=== PATIENT | male | born 1950 | race Caucasian/White ===

== ENCOUNTER 2016-11-09 19:53 | Observation (INO) | payer OTHER ==
[2016-11-09] MEDS ORDERED: ATORVASTATIN CALCIUM 40 MG TAB PO SCH (21:00)
[2016-11-09] MEDS ORDERED: ASPIRIN 81 MG CHEWABLE TAB PO SCH (21:00)
[2016-11-09] MEDS ORDERED: FINASTERIDE 5 MG TAB PO SCH (21:00)
[2016-11-09] MEDS ORDERED: LISINOPRIL 5 MG TAB PO SCH (21:00)
--- NOTE | 2016-11-09 23:04 | PDGENHP ---
History and Physical - Chief Complaint Weakness - History of Present Illness 65 yo M w/ HTN and HLD presents after episode of L arm weakness. He was preparing a meal around 4 PM on day of admission when he first noticed weakness in his neck. He then noticed weakness in his left arm as well. Patient and called 911, who instructed them to test extremity strength. On this assessment again noted L arm weakness. They denied dysarthria or aphasia. EMS arrived at 4:15 and took them to [facility] ED. By 4:45, symptoms had completely resolved and patient returned to normal baseline. In [facility] ED, patient was noted to be in new atrial fibrillation. He also had an unremarkable CT brain and CTA head and neck. He as then transferred to [facility] for further care. Patient has noticed that his heart rate has been irregular for the last few weeks. He reports this is a new issue. He denies chest pain, shortness of breath , palpitations, dizziness, and lightheadedness today and at any point over the last few weeks. History Information - Allergies/Home Medication List Allergies/Adverse Reactions: emollient combination no.58 [From [facility]] Allergy (Intermediate, Verified 11/07 10:21) Hives Sulfa (Sulfonamide Antibiotics) Allergy (Intermediate, Verified 07/01/14 10:21) Rash ibuprofen Allergy (Mild, Verified 11/09/16 21:31) Other-Enter Comments Home Medications: Aspirin [Aspirin 81mg (*)] 81 mg PO HS 11/09/16 [Last Taken 11/08/16] Atorvastatin Calcium [Lipitor 40 mg (*)] 40 mg PO HS 11/09/16 [Last Taken ] Finasteride [Proscar 5 MG (*)] 5 mg PO HS 11/09/16 [Last Taken 11/08/16] Lisinopril [Zestril 5 mg (*)] 5 mg PO HS 11/09/16 [Last Taken 11/08/16] I have personally reviewed and updated: family history, medical history - Past Medical History hypertension, hyperlipidemia - Surgical History Additional surgical history: Knee arthroplasty - Family History Positive for: stroke (Mother had hx of CVA) - Social History Smoking Status: Never smoked Alcohol Use: Occasionally Drug Use: None Review of Systems ROS: 10pt was reviewed & negative except for what was stated in HPI & below Physical Exam Temp Pulse Resp BP Pulse Ox 36.8 C 62 18 141/96 H 97 11/09/16 21:32 11/09/16 21:32 11/09/16 21:32 11/09/16 21:32 11/09/16 21:32 Constitutional: no apparent distress, appears nourished Eyes: PERRL, EOMI Ears, Nose, Mouth, Throat: moist mucous membranes, no oral mucosal ulcers Cardiovascular: no murmur, rub, or gallop, irregularly irregular Respiratory: no respiratory distress, clear to auscultation Gastrointestinal: normoactive bowel sounds, soft, non-tender abdomen Skin: warm, no rashes or abrasions Musculoskeletal: full muscle strength, no muscle tenderness Neurologic: AAOx3, sensation intact bilaterally, CN II-XII Intact, other ( Cerebellar function intact, NIHSS 0), No weakness, No numbness, No pronator drift, No facial droop Psychiatric: interacting appropriately, not anxious Lab Data & Imaging Review Imaging Review: Reviewed imaging results from [facility]. CT Head w/o contrast: - No evidence of acute intracranial process CTA Head and Neck: - Mild atherosclerosis of the carotid bulb bilaterally, R>L, without substantial stenosis seen. - No discrete abnormality of intracranial vessels - Left-sided type anomaly of posterior circulation noted Assessment & Plan Assessment: 65 yo M w/ HTN and HLD admitted after TIA. Plan: 1. TIA - With symptoms of L sided neck and arm weakness, resolved within 45 minutes of onset. NIHSS 0 on admission. Possible embolic etiology noting newly diagnosed atrial fibrillation. Patient has no prior hx of CVA or stroke. He has well controlled HTN and HLD and does not smoke cigarettes. He does have a positive family hx for stroke in his mother. CT non-contrast and CTA head/neck performed at [facility] without acute abnormalities. ABCD2 score of 5, denoting moderate risk (5.9% 7 day, 9.8% 90 day) of stroke. - Echocardiogram ordered - MRI w/wo for further evaluation - Monitor on telemetry, q4h neuro checks - Will check lipid panel, A1c - Neurology consult placed - Continue home ASA, statin. May benefit from switch to plavix but will defer to neurology and cardiology pending anticoagulation decision 2. Atrial fibrillation - New diagnosis; [id number] of 3 noting above TIA. Rate controlled without medication. - Echocardiogram ordered - Monitor on telemetry - Indicated for anticoagulation, will consult cardiology to discuss best options with patient pending completion of TIA work-up 3. HTN - Continue home lisinopril 4. HLD - Continue home atorvastatin Diet - Regular, no issues on bedside swallow screen Code - Full Ppx - SCDs Dispo - Admit to observation, anticipate <2 MN
--- NOTE | 2016-11-10 00:02 | CPEKG ---
Heart Rate: 63 RR Interval: 952 QRSD Interval: 88 QT Interval: 396 QTC Interval: 406 QRS Springer: 1 T Wave Springer: 26 EKG Severity - ABNORMAL ECG - EKG Impression: ATRIAL FIBRILLATION, V-RATE 51-78 EKG Impression: VENTRICULAR PREMATURE COMPLEX Electronically Signed By: Tarik Alvarenga 10-Nov-2016 05:47:12
[2016-11-10 05:04] LABS: % IMMATURE GRANULYOCYTES 0.2 % (0.0-1.1); ABSOLUTE IMMATURE GRANULOCYTES 0.01 10^3/uL (0.00-0.10); ADD DIFF? NO; ADD MORPH? NO; ADD SCAN? NO; ATYPICAL LYMPHOCYTE FLAG 10 (0-99); FRAGMENT RBC FLAG 0 (0-99); HEMATOCRIT 42.5 % (40.0-51.0); HEMOGLOBIN 14.2 g/dL (13.7-17.5); LEFT SHIFT FLG 0 (0-99); LIPEMIA HEMOLYSIS FLAG 80 (0-99); MEAN CELL HEMOGLOBIN 29.6 pg (27.9-34.1); MEAN CELL HEMOGLOBIN CONCENTR. 33.4 g/dL (32.4-36.7); MEAN CELL VOLUME 88.7 fL (81.5-99.8); MEAN PLATELET VOLUME 10.3 fL (8.7-11.7); PLATELET CLUMPS FLAG 0 (0-99); PLATELET COUNT 174 10^3/uL (150-400); RED BLOOD CELL COUNT 4.79 10^6/uL (4.40-6.38); RED CELL DISTRIBUTION WIDTH 13.4 % (11.5-15.2)
[2016-11-10 05:22] LABS: ALANINE AMINOTRANSFERASE 43 IU/L (21-72); ALBUMIN 3.2 g/dL (3.5-5.0); ALKALINE PHOSPHATASE 61 IU/L (38-126); ANION GAP 8 mEq/L (8-16); ASPARTATE AMINOTRANSFERASE 25 IU/L (17-59); BILIRUBIN,TOTAL 0.6 mg/dL (0.1-1.4); CALCIUM 9.1 mg/dL (8.5-10.4); CARBON DIOXIDE 26 mEq/l (22-31); CHLORIDE 106 mEq/L (97-110); CHOLESTEROL 126 mg/dL (140-220); CHOLESTEROL/HDL RATIO 2.57 RATIO (1.00-4.97); CREATININE 1.4 mg/dL (0.7-1.3); GLOMERULAR FILTRATION RATE 51; GLUCOSE 93 mg/dL (70-100); HIGH DENSITY LIPOPROTEIN 49 mg/dL (40-65); LDL/HDL RATIO 1.22 RATIO (1.00-3.64); LOW DENSITY LIPOPROTEIN 60 mg/dL (80-100); NON-HIGH DENSITY LIPOPROTEIN 77 mg/dL (90-129); SODIUM 140 mEq/L (134-144); TOTAL PROTEIN 5.7 g/dL (6.3-8.2); TRIGLYCERIDE 89 mg/dL (40-150); VERY LOW DENSITY LIPOPROTEINS 17 mg/dL (8-25)
[2016-11-10 09:43] LABS: HEMOGLOBIN A1C 5.8 % (4.0-6.0)
[2016-11-10] MEDS ORDERED: NS 1,000 ML IV SCH (10:15)
[2016-11-10] MEDS ORDERED: NS 1,000 ML IV ONE (11:59)
[2016-11-10] MEDS ORDERED: fentaNYL 100 MCG/2 ML INJ IVP ONE (11:59)
[2016-11-10] MEDS ORDERED: MIDAZOLAM 2 MG/2 ML VIAL IVP ONE (11:59)
[2016-11-10] MEDS ORDERED: BENZOCAINE UNIT DOSE SPRAY HURRICAINE MM ONE (11:59)
--- NOTE | 2016-11-10 13:10 | ECHO ---
[id number] + + [address] : : [place] [address] : : [phone] + + Adult Echocardiographic Report + ------+ :Name: KIMI JERONIMO Stephenie Date: 11/10/2016 09:12 AM : : Hospital Admission Number: [id number] Locatio n: 213: :: 1950 Gender: Male Height: 75 in : :Age: 65 yrs Race: WH Weight: 236 lb : :Reason For Study: Eval LV Fx : : BSA: 2.4 meters 2 : :History: New onset of Atrial Fibrillation : + ------+ MMode/2D Measurements \T\ Calculations IVSd: 1.1 cm LVIDd: 4.1 cm FS: 28.4 % Ao root diam: 3.4 cm LVPWd: 1.1 cm LVIDs: 2.9 cm EDV(Teich): 73.0 ml ACS: 1.9 cm ESV(Teich): 32.6 ml EF(Teich): 55.4 % Normal Measurement Values: + + :LVIDd (3.5-5.7cm) IVSd (0.6-1.1cm) LVPWd (0.6-1.1cm) Aortic Root (2.0-3.7cm)Left Atrium (1.5-4.0cm): :LV Vol(d) (76-115ml) LV Vol(s) (29-48ml) Ejec Fraction (50-65%)PV Virgil (0.6- 1.2m/s) TV Virgil (0.4-1.0m/s) : :MV E Virgil (0.8-1.0m/s)MV A Virgil (0.3-1.0m/s)LVOT Virgil (0.7-1.2m/s) Asc Ao Virgil ( 0.9-1.8m/s) : + + Doppler Measurements \T\ Calculations MV E max virgil: Ao V2 max: AI max virgil: LV V1 max: 63.7 cm/sec 77.4 cm/sec 229.4 cm/sec 44.9 cm/sec Ao max PG: AI max P.0 mmHgLV V1 max P.4 mmHg AI dec slope: 0.81 mmHg 129.4 cm/sec2 AI P1/2t: 519.3 msec PA V2 max: TR max virgil: 59.7 cm/sec 245.7 cm/sec PA max PG: TR max P.4 mmHg 24.1 mmHg RAP systole: 5.0 mmHg RVSP(TR): 29.1 mmHg Left Ventricle The left ventricle is normal in size. There is normal left ventricular wall thickness. Left ventricular systolic function is low normal. Ejection Fraction = 50-55%. The rhythm is atrial fibrillation/flutter. Right Ventricle The right ventricle is normal in size and function. Atria The left atrium is mildly dilated. Right atrial size is normal. Mitral Valve Mitral valve prolapse cannot be excluded. There is no mitral valve stenosis. There is trace mitral regurgitation. Tricuspid Valve Normal tricuspid valve. There is trace to mild tricuspid regurgitation. Right ventricular systolic pressure is normal. Aortic Valve The aortic valve is trileaflet. There is no aortic stenosis. Mild aortic regurgitation. Pulmonic Valve The pulmonic valve is normal in structure and function. There is no pulmonic valvular regurgitation. Great Vessels The aortic root is normal size. Pericardium/Pleural There is no pericardial effusion. Conclusion A complete two-dimensional transthoracic echocardiogram was performed (2D, M-mode, Doppler and color flow Doppler). The rhythm is atrial fibrillation with pauses up to 3 seconds noted during study. Left ventricular systolic function is low normal. Ejection Fraction = 50-55%. The right ventricle is normal in size and function. The left atrium is mildly dilated. The aortic valve is trileaflet. Mild aortic regurgitation. Mitral valve prolapse cannot be excluded. There is trace mitral regurgitation. There is trace to mild tricuspid regurgitation. Right ventricular systolic pressure is normal at 29.1 mmHg. There is no pericardial effusion. Final Reading Physician: Katrin Hernandez signed on 11/10/2016 01:08 PM Ordering Physician: Leobardo Roblero Performed By: Juventino Jacobsen, RDCS
--- NOTE | 2016-11-10 14:44 | NEUROPROG ---
Assessment: [id number] CC: Dr. Roblero consulted neurology for possible TIA. Results placed in the EMR for their review. HPI: This patient was admitted 11/09/16. Per EMR review, he reported on 11/09/16 he had 30 minutes of left arm weakness which then resolved. A head CT and CTA were unremarkable but he was noted to be afib leading to admission to [facility]. When I went to initially see him in his room on 11/10/16 he was not in his room. PMHx: HTN, HLD, TIA 11/09/17 (30 min left arm weakness), afib, knee surgery Home Meds: ASA 81 mg qd, Lipitor 40 mg qd, finasteride, lisinopril, SHx: no tobacco FHx: Stroke Labs: 11/10/16- CBC wnl, CMP Cr 1.4H, H1AC 5.8, LDL 60L Rads: 11/09/16- Head CT: no acute intracranial process 11/09/16- CTA head/neck: no significant carotid stenosis, no discrete abnl of intracranial vessels 11/09/16- EKG: afib 11/09/16- Brain MRI w/o con: R frontal 3 mm acute cortical stroke (I personally visualized the images on 11/10/16) Assessment: 1. Stroke causing Left Arm Weakness for 30 minutes in setting of afib 2. HTN 3. HLD Plan: - TTE pending - Recommend oral anticoagulation to start now for stroke suspected from afib, OK to stop aspirin 325 mg qd when therapeutic on oral anticoagulation agent - BP goal < 220/120 x 48 hours then < 140/90 shelter - H1AC goal < 7.0 (5.8) - LDL goal < 70 (60), continue current statin - Pt can likely discharge today if doing well I was not able to examine the patient yet. I will attempt to see him again when I come back to the hospital tonight or tomorrow morning. I do not think my examine will be likely to change my recommendations. Objective: Vital Signs Temp Pulse Resp BP Pulse Ox 36.8 C 60 16 135/85 H 95 11/10/16 10:57 11/10/16 10:57 11/10/16 10:57 11/10/16 10:57 08/18/17 10:57 Laboratory Results 11/10/16 04:13 11/10/16 04:13 11/09/16 11/10/16 11/11/16 05:59 05:59 05:59 Intake Total 300 Output Total 350 Balance -50 Allergies/Adverse Reactions: emollient combination no.58 [From [facility]] Allergy (Intermediate, Verified 11/07 10:21) Hives Sulfa (Sulfonamide Antibiotics) Allergy (Intermediate, Verified 07/01/14 10:21) Rash ibuprofen Allergy (Mild, Verified 11/09/16 21:31) Other-Enter Comments casein Allergy (Verified 11/10/16 06:46) Milk Containing Products [dairy] Allergy (Verified 11/10/16 06:46) Penicillins Allergy (Verified 11/10/16 06:44) whey Allergy (Verified 11/10/16 06:47)
--- NOTE | 2016-11-10 15:06 | ECHO ---
[id number] + + [address] : : [place] [facility] [address] : : [phone] + + Transesophageal Echocardiographic Report + ------+ :Name: KIMI JERONIMO Date: 11/10/2016 12:13 PM : : Hospital Admission Number: [id number] Locatio n: CVC: :: 1950 Gender: Male : :Age: 65 yrs Race: WH : :Reason For Study: Eval for Embolic Source : :History: TIA, New onset A-Fib : + ------+ Left Ventricle The left ventricular ejection fraction is normal. Right Ventricle The right ventricle is normal in size and function. Atria A patent foramen ovale is present. Spontaneous contrast in LA. Possible left atrial appendage thrombus. Mitral Valve There is no mitral valve stenosis. There is mild to moderate mitral regurgitation. Tricuspid Valve There is trace to mild tricuspid regurgitation. Aortic Valve The aortic valve is trileaflet. There is no aortic stenosis. Mild aortic regurgitation. Pulmonic Valve The pulmonic valve is normal in structure and function. There is no pulmonic valvular regurgitation. Vessels Mild atherosclerotic plaque(s) in the descending aorta. Pericardium There is no pericardial effusion. Procedure NPO status confirmed, informed consent obtained and timeout performed. CARLITOS probe was passed without difficulty. Conclusion A 2D transesophageal echocardiogram with color flow Doppler was performed. The left ventricular ejection fraction is normal. Spontaneous contrast in LA. A patent foramen ovale is present. Possible left atrial appendage thrombus There is mild to moderate mitral regurgitation. There is trace to mild tricuspid regurgitation. The aortic valve is trileaflet. Mild aortic regurgitation. Mild atherosclerotic plaque(s) in the descending aorta. Final Reading Physician: Dr Vandana Granados electronically signed on 11/10/2016 03:05 PM Ordering Physician: Vandana Granados Performed By: Dr Vandana Granados
[2016-11-10 15:20] VITALS: BP 127/80; PULSE 65; RESP 15; TEMP 97; O2SAT 97
[2016-11-10] MEDS ORDERED: APIXABAN 5 MG TAB PO SCH (16:00)
--- NOTE | 2016-11-10 16:24 | HOSPPROG ---
Hospitalist Progress Note Assessment/Plan: #Acute embolic CVA: CARLITOS showed patent foramen ovale, cannot rule out left appendage thrombus. Start Eliquis, stop ASA. Cont statin, BP controlled #Atrial fibrillation: suspect chronic with intermittent palps over past couple years. Rate-controlled. Eliquis #HTN: at goal #HLD:statin #ADI: Cr up to 1.4 from 1.1. Encourage hydration. Hold ACEI until repeat BMP on Sunday #Disp: DC today with [facility] Neurology and Cardiology Subjective: no weakness today Objective: Vital Signs Temp Pulse Resp BP Pulse Ox 36.1 C 65 15 127/80 H 97 11/10/16 15:19 11/10/16 15:19 11/10/16 15:19 11/10/16 15:19 11/10/16 15:19 Laboratory Results 11/10/16 04:13 11/10/16 04:13 11/09/16 11/10/16 11/11/16 05:59 05:59 05:59 Intake Total 300 240 Output Total 350 Balance -50 240 - Physical Exam Constitutional: no apparent distress Eyes: PERRL Ears, Nose, Mouth, Throat: moist mucous membranes Cardiovascular: regular rate and rhythym Respiratory: no respiratory distress Gastrointestinal: normoactive bowel sounds, soft, non-tender abdomen Genitourinary: no bladder fullness Skin: warm Neurologic: AAOx3, CN II-XII Intact Psychiatric: interacting appropriately ICD10 Worksheet Patient Problems: Problems Problem Status Onset CVA (cerebral vascular accident) Acute
--- NOTE | 2016-11-10 17:25 | GCON ---
[f rep st] CONSULTATION DATE OF CONSULTATION: 11/10/2016 PRIMARY CARE DOCTOR: Valeriy Hammond MD CHIEF COMPLAINT: TIA and atrial fibrillation. REASON FOR CONSULTATION: We are asked by Dr. Roblero to visit with the patient. HISTORY OF PRESENT ILLNESS: The patient is a 65-year-old male with treated hypertension and dyslipi demia. He was at home yesterday afternoon, making something to eat and standing in the kitchen. He started walking and was holding a bowl in his left hand. He had sudden onset numbness on the right side of his neck as well as a peculiar sensation of numbness and weakness in his left arm. He did not drop the bowel. He got down on the floor. He describes seeing a small dot of green but did not have a visual field cut. He did not have dysarthria. His called 911 and paramedics arrived q [facility]. At that point, he was not able to lift his left arm fully over his head and he felt like he did not have control over his left arm. He denies any leg weakness. He was not having chest pain or shortness of breath. He was transported emergently to [facility]. He was evaluated there i n the emergency department and found to be in atrial fibrillation with controlled ventricular respon se. His symptoms resolved 45 minutes after onset. At [facility] he did have a brain CT and CT angiogra m of the head and neck that were unremarkable. Due to insurance issues, he was transferred to [facility] for further care. This morning, he states that his neurological symptoms have not recurred. In retrospect, he does en dorse nocturnal palpitations, especially when he lies down at night to go to sleep, that had been oc curring over the past 2 weeks. His heart rate has not felt rapid but just irregular. He also descr ibes an intermittent sensation of lightheadedness that usually occurs with position changes. Furthe rmore, over the past couple of years he has had occasional sensations of feeling a little bit tingly , wonders whether this was perhaps AFib, but it was different than his current TIA-like symptoms. H e denies angina. No dyspnea. No symptoms suggestive of heart failure. In general, he is quite active and can hike and otherwise exercise without difficulty. REVIEW OF SYSTEMS: About a week ago, he had an episode of probable prostatitis that was quite bothe rsome for about 24 hours but resolved after he took Azo and was seen in the urgent care. In this se tting, he had 1 episode of diarrhea. He has never had a stroke or TIA. He denies any history of si gnificant bleeding problems. His does report that he snores. Otherwise, a full 10-point Revie w of Systems is performed and is negative except that which is outlined in the History of Present Il lness. ALLERGIES: SULFA, EMOLLIENT COMBINATION #58, IBUPROFEN, CASEIN, PENICILLIN, AND WHEY. PAST MEDICAL HISTORY: Hypertension, dyslipidemia, BPH, knee arthroplasty. OUTPATIENT MEDICATIONS: Lisinopril 5 mg daily, aspirin 81 mg daily, Atorvastatin 40 mg daily, and f inasteride 5 mg nightly. 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 He is and his is at the bedside. He does not smoke cigarettes. He drinks alcohol in moderation. FAMILY HISTORY: Mother had a history of stroke x2. PHYSICAL EXAM: VITAL SIGNS: Blood pressure 113/75, heart rate 68, oxygen saturation 96% on room ai r. He is afebrile. Respiratory rate 17. GENERAL: Well-appearing, middle-aged older male, in no a cute distress. HEENT: Sclerae are clear and free of jaundice. Mucous membranes are moist. Normoc ephalic, atraumatic. CARDIOVASCULAR: JVP is less than 10. Carotids equal and 2+ bilaterally, with out bruit. Irregularly irregular rhythm. No murmur. No S3. LUNGS: Clear to auscultation bilater ally without wheezes, rhonchi, or rales. ABDOMEN: Soft, nontender, nondistended without bruits, ma sses, or hepatosplenomegaly. EXTREMITIES: Warm and well perfused without cyanosis, clubbing, or ed dany. Intact distal pulses. NEURO: Alert and oriented x3. Cranial nerves 2-12 are intact. Approp riate mood and affect. LABORATORY DATA: CBC is normal. Sodium 140, potassium 4, chloride 106, bicarb 26, BUN 19, creatini ne 1.4 which is above his baseline of 1.2. Hemoglobin A1c is pending. LFTs are normal except for s lightly low albumin and total protein. LDL cholesterol is 60. TSH is pending. EKG reviewed by me shows atrial fibrillation with controlled ventricular response. PVC. Telemetry shows atrial fibrillation with controlled ventricular response. Some pauses. Occasional PVCs. Preliminary echo review: Normal LV size and systolic function without regional wall motion abnormal ities. No significant valvular disease. Head and neck CTA and head CT at [facility] were, by report, unremarkable. ASSESSMENT AND PLAN: A 65-year-old male admitted with symptoms consistent with transient ischemic a ttack. Symptoms lasted for 45 minutes and resolved. He is clearly not a candidate for tissue plasm inogen activator treatment. He was also diagnosed with atrial fibrillation. The most likely etiolo gy of his transient ischemic attack is thromboembolism from cardiac source. No evidence of heart fa ilure. He is hemodynamically stable. 1. Transient ischemic attack: Brain MRI and neurology consult are pending. Based on his brain MRI , I would like him to start Eliquis 5 mg twice daily. Bleeding risks were reviewed with the patient . We will perform CARLITOS after his brain MRI to formally evaluate for intracardiac thrombus. Even if there is no thrombus, he would be a candidate for anticoagulation therapy as long as there is no con traindication from a neurology standpoint. Continue statin. He probably does not need aspirin if h e is going to be on Eliquis. Continue blood pressure management with lisinopril. 2. Atrial fibrillation: It is likely that this started a couple of weeks ago. He is rate controll ed on no rate-controlling medications and is not in heart failure. I would avoid cardioversion in t he immediate post transient ischemic attack setting, consider cardioversion in 4-6 weeks after thera peutic anticoagulation. Would consider cardioversion because he is having some symptoms in atrial f ibrillation, but these symptoms do not warrant urgent return to sinus rhythm. In terms of the etiol ogy of his atrial fibrillation, we will check TSH. I recommend that he screen for sleep disordered breathing as an outpatient, given his history of snoring. 3. Hypertension: Currently well controlled. He is on lisinopril as an outpatient. 4. Dyslipidemia: Low-density lipoprotein is excellent at 60. Continue atorvastatin. Thank you for allowing us to participate in the patient's care. We will follow with you. /[id number]/MODL
--- NOTE | 2016-11-10 19:47 | GDS ---
[f rep st] DISCHARGE SUMMARY DISCHARGE DIAGNOSES: 1. Embolic right frontal stroke. 2. Paroxysmal atrial fibrillation. 3. Hypertension. 4. Hyperlipidemia. 5. Acute kidney injury. PROCEDURES: CARLITOS 11/10/2016: Patent foramen ovale and possible left atrial appendage thrombus. HISTORY OF PRESENT ILLNESS: A 65-year-old male, history of hypertension, hyperlipidemia, who presented with left arm weakness. He was preparing a meal at 4:00 p.m. on the day of admission, when he first noticed weakness in his neck , then it extended to his left arm. His called 911. He denied dysarthria or aphasia. EMS arrived and took him to [facility]. By 4:45 symptoms have completely resolved and the patient returned to his normal baseline. In the emergency room there was noted to be new atrial fibrillation. He has noticed his heart rate has been irregular over the last couple years intermittently, but has been more persistent over the last few weeks. Denies any chest pain, shortness of breath, dizziness, or lightheadedness. HOSPITAL COURSE BY PROBLEM: 1. Acute embolic frontal stroke: secondary atrial fibrillation. CARLITOS was performed showing patent foramen ovale, and possible left appendage thrombus. It is atypical, but cannot totally rule out. Treated with Eliquis. Continue statin. Blood pressure is controlled. He will call Neurology Clinic next week for followup. 2. Atrial fibrillation: Currently rate controlled. This appears to be chronic in nature since has had intermittent palpitations for some time. Eliquis and follow up with Cardiology. 3. Hypertension. Hold lisinopril until repeat BMP on Sunday given ADI. 4. Acute kidney injury. Creatinine is elevated at 1.4, baseline 1.1-1.2. Suspect secondary to mild dehydration. I recommend hydration over the weekend, hold lisinopril and get a repeat BMP on Sunday. DISPOSITION: The patient is stable for discharge. NEW MEDICATIONS: 1. Eliquis 5 mg twice daily. 2. Stop aspirin. 3. Follow up with Neurology and Cardiology TIME SPENT ON DISCHARGE: 45 minute counseling patient and on further treatment and followup plan. /[id number]/MODL MTDD
== END 2016-11-10 17:00 | disposition home or self-care (01) ==
LOC: F2W 21:08
PROVIDERS: ADMIT Internal Medicine; ATTEND Internal Medicine
PROC: B245ZZ4 Ultrasonography of Left Heart, Transesophageal (ICD-10-PCS; principal; 2016-11-09)
DX: I63.441 Cerebral infarction due to embolism of right cerebellar artery (principal); I48.0 Paroxysmal atrial fibrillation; I10 Essential (primary) hypertension; E78.5 Hyperlipidemia, unspecified; N17.9 Acute kidney failure, unspecified; N40.0 Benign prostatic hyperplasia without lower urinary tract symptoms
CPT/HCPCS: 70551; 92523; 93005; 93306; 93312; G0378; J2250; J3010

== ENCOUNTER → 2016-11-23 | Outpatient (CLI) | payer OTHER | LOC: BRMIMAGING 11:18 | PROVIDERS: ATTEND Internal Medicine | DX: N28.1 Cyst of kidney, acquired (principal); D40.0 Neoplasm of uncertain behavior of prostate | CPT/HCPCS: 76770-PO ==